=== PATIENT | female | born 1990 | race Hispanic/Latino ===

== ENCOUNTER 2016-06-08 15:52 | Emergency (ER) | payer OTHER ==
[~2016-06-08] VITALS: Ht 154.9 cm; Wt 50.0 kg
[~2016-06-08 15:52] MED LIST: ACYCLOVIR400 MG PO; AMOXICILLIN500 MG OR; AUGMENTIN875TAB PO; BACTRIM DS1 TAB PO; BENADRYL 50MG C50 MG OR; CIPRO XR500 M2 PO; CIPROFLOXACN500 MG PO; CORTISPORIN OTI10 ML AS; DEPO-MEDROL40 MG/ML IM; FLEXERIL10 MG PO; LORTAB 1010 MG PO; METRONIDAZOL500 MG PO; NAPROSYN500 MG PO; NEXPLANON68 MG SC; ONDANSETRON4 MG PO; PRENATAL1 TA1; PROTONIX40 M2 PO; ULTRAM50 M1 PO; ULTRAM50 MG OR; UNK BIRTH CONTROL; ZOFRAN4 MG/TAB PO
[2016-06-08 16:43] LABS: HEMATOCRIT 36.1 % (37.0-47.0); HEMOGLOBIN 12.3 g/dl (12.0-16.0); IMMATURE GRANULOCYTES 0.4 % (0.0-1.0); MEAN CELL VOLUME 87.8 fL CALC (80.0-100.0); MEAN CORPUSCULAR HGB 29.9 pG CALC (26.0-32.0); MEAN CORPUSCULAR HGB CONC 34.1 g/L CALC (32.0-36.0); NEUT# 8.4 thou/uL (2.00-7.15); RED BLOOD COUNT 4.11 mill/uL (4.20-5.60); RED CELL DISTRI WIDTH 13.3 % (11.5-15.5); URINE BILIRUBIN - DIPSTICK NEGATIVE (NEGATIVE); URINE BLOOD DIPSTICK LARGE (NEGATIVE); URINE CLARITY CLEAR; URINE COLOR YELLOW; URINE GLUCOSE - DIPSTICK NEGATIVE (NEGATIVE); URINE KETONE NEGATIVE (NEGATIVE); URINE LEUK ESTERASE NEGATIVE (NEGATIVE); URINE NITRITE - DIPSTICK NEGATIVE (Negative); URINE PROTEIN - DIPSTICK 30 mg/dL (NEG-TRACE); URINE SPECIFIC GRAVITY 1.025; URINE UROBILINOGEN - DIPSTICK 0.2 E.U./dL (0.2)
[2016-06-08 16:54] LABS: URINE SQUAMOUS EPITHELIAL CELL FEW EPI/hpf (0-FEW)
[2016-06-08 16:57] LABS: ALBUMIN 4.4 g/dL (3.2-5.0); ALKALINE PHOSPHATASE 62 u/l (38-126); ANION GAP 13 (6-22 (CALC)); BILIRUBIN, TOTAL 0.2 mg/dL (0.0-1.4); BUN 10 mg/dL (7-17); BUN/CREATININE RATIO 14 (12-20 (CALC)); CALCIUM 9.8 mg/dL (8.4-10.2); CARBON DIOXIDE 26 mmol/l (22-30); CHLORIDE 103 mmol/l (95-108); CREATININE 0.7 mg/dL (0.5-1.0); GFR > 60 ML/MIN (>=60 (CALC)); GFR FOR AFR.AMER. > 60 ML/MIN (>=60 (CALC)); GLUCOSE 78 mg/dL (65-105); POTASSIUM 3.5 mmol/l (3.5-5.1); SGOT/AST 16 u/l (14-36); SGPT/ALT 26 u/l (9-52); SODIUM 139 mmol/l (137-146); TOTAL PROTEIN 7.6 g/dL (6.3-8.2)
[2016-06-08 17:39] LABS: BETA-HCG, QUANT(RESULT NUMBER) 26353 mIU/mL
[2016-06-08 19:40] VITALS: BP 98/56
== END 2016-06-08 19:40 | disposition home or self-care (01) | DRG 778 ==
LOC: ED 15:52
PROVIDERS: Emergency Medicine
DX: O20.0 Threatened abortion (principal); Z3A.01 Less than 8 weeks gestation of pregnancy

== ENCOUNTER 2016-06-21 17:19 | Emergency (ER) | payer OTHER ==
[~2016-06-21] VITALS: Ht 154.9 cm; Wt 50.0 kg
[2016-06-21] MEDS ORDERED: ZOFRAN ODT4 MG PO ×2 (17:50→20:24)
[2016-06-21 17:56] LABS: HEMATOCRIT 37.5 % (37.0-47.0); HEMOGLOBIN 12.8 g/dl (12.0-16.0); IMMATURE GRANULOCYTES 0.4 % (0.0-1.0); MEAN CELL VOLUME 90.4 fL CALC (80.0-100.0); MEAN CORPUSCULAR HGB 30.8 pG CALC (26.0-32.0); MEAN CORPUSCULAR HGB CONC 34.1 g/L CALC (32.0-36.0); NEUT# 11.77 thou/uL (2.00-7.15); RED BLOOD COUNT 4.15 mill/uL (4.20-5.60); RED CELL DISTRI WIDTH 12.7 % (11.5-15.5)
[2016-06-21 18:09] LABS: ALBUMIN 4.3 g/dL (3.2-5.0); ALKALINE PHOSPHATASE 55 u/l (38-126); AMYLASE 115 u/l (30-110); ANION GAP 20 (6-22 (CALC)); BILIRUBIN, TOTAL 0.2 mg/dL (0.0-1.4); BUN 6 mg/dL (7-17); BUN/CREATININE RATIO 10 (12-20 (CALC)); CALCIUM 9.7 mg/dL (8.4-10.2); CARBON DIOXIDE 25 mmol/l (22-30); CHLORIDE 94 mmol/l (95-108); CREATININE 0.6 mg/dL (0.5-1.0); GFR > 60 ML/MIN (>=60 (CALC)); GFR FOR AFR.AMER. > 60 ML/MIN (>=60 (CALC)); GLUCOSE 83 mg/dL (65-105); LIPASE 54 u/l (23-300); POTASSIUM 3.6 mmol/l (3.5-5.1); SGOT/AST 18 u/l (14-36); SGPT/ALT 22 u/l (9-52); SODIUM 136 mmol/l (137-146); TOTAL PROTEIN 7.8 g/dL (6.3-8.2)
[2016-06-21 18:23] LABS: URINE BILIRUBIN - DIPSTICK NEGATIVE (NEGATIVE); URINE BLOOD DIPSTICK NEGATIVE (NEGATIVE); URINE CLARITY CLEAR; URINE COLOR YELLOW; URINE GLUCOSE - DIPSTICK NEGATIVE (NEGATIVE); URINE KETONE NEGATIVE (NEGATIVE); URINE LEUK ESTERASE NEGATIVE (NEGATIVE); URINE NITRITE - DIPSTICK NEGATIVE (Negative); URINE PROTEIN - DIPSTICK NEGATIVE (NEG-TRACE); URINE SPECIFIC GRAVITY >=1.030; URINE UROBILINOGEN - DIPSTICK 0.2 E.U./dL (0.2)
[2016-06-21] MEDS ORDERED: AMOXICILLIN500 MG PO (20:24)
[2016-06-21 20:42] VITALS: BP 95/66
== END 2016-06-21 20:35 | disposition home or self-care (01) | DRG 781 ==
LOC: ED 17:19
PROVIDERS: Emergency Medicine
DX: O99.611 Diseases of the digestive system complicating pregnancy, first trimester (principal); K52.9 Noninfective gastroenteritis and colitis, unspecified; Z3A.08 8 weeks gestation of pregnancy

== ENCOUNTER 2016-07-27 11:18 | Emergency (ER) | payer OTHER ==
[~2016-07-27] VITALS: Ht 154.9 cm; Wt 50.0 kg
[~2016-07-27 11:18] MED LIST changes: +AMOXICILLIN500 MG PO; +ZOFRAN ODT4 MG PO
[2016-07-27 12:00] LABS: HEMATOCRIT 35.3 % (37.0-47.0); HEMOGLOBIN 11.8 g/dl (12.0-16.0); IMMATURE GRANULOCYTES 0.4 % (0.0-1.0); MEAN CELL VOLUME 89.6 fL CALC (80.0-100.0); MEAN CORPUSCULAR HGB 29.9 pG CALC (26.0-32.0); MEAN CORPUSCULAR HGB CONC 33.4 g/L CALC (32.0-36.0); NEUT# 12.78 thou/uL (2.00-7.15); RED BLOOD COUNT 3.94 mill/uL (4.20-5.60); RED CELL DISTRI WIDTH 12.2 % (11.5-15.5)
[2016-07-27 12:19] LABS: ALKALINE PHOSPHATASE 68 u/l (38-126); AMYLASE 134 u/l (30-110); ANION GAP 16 (6-22 (CALC)); BILIRUBIN, TOTAL 0.5 mg/dL (0.0-1.4); BUN 9 mg/dL (7-17); BUN/CREATININE RATIO 16 (12-20 (CALC)); CALCIUM 9.4 mg/dL (8.4-10.2); CARBON DIOXIDE 22 mmol/l (22-30); CHLORIDE 102 mmol/l (95-108); CREATININE 0.6 mg/dL (0.5-1.0); GFR > 60 ML/MIN (>=60 (CALC)); GFR FOR AFR.AMER. > 60 ML/MIN (>=60 (CALC)); GLUCOSE 73 mg/dL (65-105); LIPASE 47 u/l (23-300); POTASSIUM 3.6 mmol/l (3.5-5.1); SGOT/AST 53 u/l (14-36); SGPT/ALT 14 u/l (9-52); SODIUM 136 mmol/l (137-146); TOTAL PROTEIN 7.8 g/dL (6.3-8.2)
[2016-07-27 12:22] LABS: URINE BILIRUBIN - DIPSTICK NEGATIVE (NEGATIVE); URINE BLOOD DIPSTICK NEGATIVE (NEGATIVE); URINE CLARITY CLEAR; URINE COLOR YELLOW; URINE GLUCOSE - DIPSTICK NEGATIVE (NEGATIVE); URINE KETONE NEGATIVE (NEGATIVE); URINE LEUK ESTERASE NEGATIVE (NEGATIVE); URINE NITRITE - DIPSTICK NEGATIVE (Negative); URINE PH 7.5 (4.5-8.0); URINE PROTEIN - DIPSTICK NEGATIVE (NEG-TRACE); URINE UROBILINOGEN - DIPSTICK 0.2 E.U./dL (0.2)
[2016-07-27 12:31] LABS: MYOGLOBIN 15 ng/mL (0 - 62)
[2016-07-27] MEDS ORDERED: PHENERGAN25 MG/TAB PO (14:48)
[2016-07-27] MEDS ORDERED: PHENERGAN25 M1 PR (14:48)
[2016-07-27 15:24] VITALS: BP 116/55
== END 2016-07-27 15:24 | disposition home or self-care (01) | DRG 781 ==
LOC: ED 11:18
PROVIDERS: Emergency Medicine
DX: O21.0 Mild hyperemesis gravidarum (principal); O24.911 Unspecified diabetes mellitus in pregnancy, first trimester; R10.32 Left lower quadrant pain; R94.31 Abnormal electrocardiogram [ECG] [EKG]; R04.0 Epistaxis; Z3A.12 12 weeks gestation of pregnancy

== ENCOUNTER 2016-09-13 10:36 | Observation (INO) | payer OTHER ==
[~2016-09-13] VITALS: Ht 160 cm; Wt 51.0 kg
[~2016-09-13 10:36] MED LIST changes: +PHENERGAN25 M1 PR; +PHENERGAN25 MG/TAB PO
[2016-09-13 11:29] LABS: HEMATOCRIT 32.6 % (37.0-47.0); HEMOGLOBIN 11.1 g/dl (12.0-16.0); IMMATURE GRANULOCYTES 0.6 % (0.0-1.0); MEAN CELL VOLUME 87.2 fL CALC (80.0-100.0); MEAN CORPUSCULAR HGB 29.7 pG CALC (26.0-32.0); NEUT# 11.46 thou/uL (2.00-7.15); RED BLOOD COUNT 3.74 mill/uL (4.20-5.60); RED CELL DISTRI WIDTH 13.1 % (11.5-15.5)
[2016-09-13 11:56] LABS: ALBUMIN 4.1 g/dL (3.2-5.0); ALKALINE PHOSPHATASE 67 u/l (38-126); ANION GAP 13 (6-22 (CALC)); BILIRUBIN, TOTAL 0.5 mg/dL (0.0-1.4); BUN 8 mg/dL (7-17); BUN/CREATININE RATIO 13 (12-20 (CALC)); CALCIUM 9.8 mg/dL (8.4-10.2); CARBON DIOXIDE 21 mmol/l (22-30); CHLORIDE 104 mmol/l (95-108); CREATININE 0.6 mg/dL (0.5-1.0); GFR > 60 ML/MIN (>=60 (CALC)); GFR FOR AFR.AMER. > 60 ML/MIN (>=60 (CALC)); GLUCOSE 68 mg/dL (65-105); LIPASE 57 u/l (23-300); POTASSIUM 3.6 mmol/l (3.5-5.1); SGOT/AST 21 u/l (14-36); SGPT/ALT 25 u/l (9-52); SODIUM 134 mmol/l (137-146); TOTAL PROTEIN 7.5 g/dL (6.3-8.2)
[2016-09-13 12:07] LABS: MYOGLOBIN 20 ng/mL (0 - 62)
[2016-09-13 13:13] LABS: URINE BILIRUBIN - DIPSTICK NEGATIVE (NEGATIVE); URINE BLOOD DIPSTICK NEGATIVE (NEGATIVE); URINE CLARITY CLEAR; URINE COLOR YELLOW; URINE GLUCOSE - DIPSTICK NEGATIVE (NEGATIVE); URINE KETONE 40 mg/dL (NEGATIVE); URINE LEUK ESTERASE NEGATIVE (NEGATIVE); URINE NITRITE - DIPSTICK NEGATIVE (Negative); URINE PH 8.5 (4.5-8.0); URINE PROTEIN - DIPSTICK NEGATIVE (NEG-TRACE); URINE UROBILINOGEN - DIPSTICK 0.2 E.U./dL (0.2)
[2016-09-13 13:42] LABS: COCAINE NEGATIVE (NEGATIVE); METHADONE NEGATIVE (NEGATIVE); TETRAHYDROCANNABIONOL POSITIVE (NEGATIVE)
[2016-09-13 13:43] LABS: BARBITURATES NEGATIVE (NEGATIVE); OXCYCODONE NEGATIVE (NEGATIVE); TRICYLIC ANTIDEPRESSANTS NEGATIVE (NEGATIVE)
[2016-09-13 15:20] VITALS: BP 97/53
[2016-09-13] MEDS ORDERED: PRE-NATAL PO (17:50)
[2016-09-13 19:15] VITALS: BP 94/53
[2016-09-13 23:36] VITALS: BP 92/55
[2016-09-14 04:00] VITALS: BP 79/39
[2016-09-14 07:52] VITALS: BP 98/51
[2016-09-14 08:25] LABS: HEMATOCRIT 32.8 % (37.0-47.0); IMMATURE GRANULOCYTES 0.5 % (0.0-1.0); MEAN CELL VOLUME 90.1 fL CALC (80.0-100.0); MEAN CORPUSCULAR HGB 30.2 pG CALC (26.0-32.0); MEAN CORPUSCULAR HGB CONC 33.5 g/L CALC (32.0-36.0); NEUT# 9.13 thou/uL (2.00-7.15); RED BLOOD COUNT 3.64 mill/uL (4.20-5.60); RED CELL DISTRI WIDTH 13.1 % (11.5-15.5)
[2016-09-14 11:44] VITALS: BP 98/54
[2016-09-14 12:56] LABS: ALBUMIN 3.2 g/dL (3.2-5.0); ALKALINE PHOSPHATASE 59 u/l (38-126); AMYLASE 88 u/l (30-110); ANION GAP 11 (6-22 (CALC)); BILIRUBIN, TOTAL 0.5 mg/dL (0.0-1.4); BUN 7 mg/dL (7-17); BUN/CREATININE RATIO 11 (12-20 (CALC)); CALCIUM 9.5 mg/dL (8.4-10.2); CARBON DIOXIDE 22 mmol/l (22-30); CHLORIDE 106 mmol/l (95-108); CREATININE 0.6 mg/dL (0.5-1.0); GFR > 60 ML/MIN (>=60 (CALC)); GFR FOR AFR.AMER. > 60 ML/MIN (>=60 (CALC)); GLUCOSE 71 mg/dL (65-105); LIPASE 73 u/l (23-300); POTASSIUM 4.2 mmol/l (3.5-5.1); SGOT/AST 21 u/l (14-36); SGPT/ALT 23 u/l (9-52); SODIUM 135 mmol/l (137-146); TOTAL PROTEIN 5.9 g/dL (6.3-8.2)
[2016-09-14 16:18] VITALS: BP 92/50
[2016-09-14 20:00] VITALS: BP 97/48
[2016-09-14 22:24] LABS: C. DIFFICILE TOXIN A&B NEGATIVE (NEGATIVE)
[2016-09-14 23:46] VITALS: BP 83/51
[2016-09-15 03:47] VITALS: BP 88/44
[2016-09-15 08:26] VITALS: BP 98/53
== END 2016-09-15 08:40 | disposition home or self-care (01) | DRG 781 ==
LOC: ED 10:36 → ED-I 13:55 → ED 14:26 → OB 14:27
PROVIDERS: Emergency Medicine; ADMIT Obstetrics & Gynecology; ATTEND Obstetrics & Gynecology
DX: O26.892 Other specified pregnancy related conditions, second trimester (principal); O09.212 Supervision of pregnancy with history of pre-term labor, second trimester; F17.210 Nicotine dependence, cigarettes, uncomplicated; R10.11 Right upper quadrant pain; R11.2 Nausea with vomiting, unspecified; O99.332 Smoking (tobacco) complicating pregnancy, second trimester; O99.322 Drug use complicating pregnancy, second trimester; F12.90 Cannabis use, unspecified, uncomplicated; F11.90 Opioid use, unspecified, uncomplicated; Z3A.20 20 weeks gestation of pregnancy
CPT/HCPCS: G0378; S0164

== ENCOUNTER 2016-12-03 11:44 | Observation (INO) | payer OTHER ==
[~2016-12-03] VITALS: Ht 160 cm; Wt 57.2 kg
[2016-12-03 11:40] VITALS: BP 123/60
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
[~2016-12-03 11:44] MED LIST changes: +MAKENA250 MG/ML IM; +PRE-NATAL PO
--- NOTE | 2016-12-03 11:53 | NUR ---
CALLED EVER [facility]ibo TECH. SHE WILL BE UP FOR U/S SOON POSSIBLE.
[2016-12-03] MEDS ORDERED: PROCARDIA10 MG PO ×2 (12:04→14:28)
[2016-12-03] MEDS ORDERED: TYLENOL PM PO (12:07)
[2016-12-03 12:13] LABS: URINE BILIRUBIN - DIPSTICK NEGATIVE (NEGATIVE); URINE BLOOD DIPSTICK NEGATIVE (NEGATIVE); URINE COLOR YELLOW; URINE GLUCOSE - DIPSTICK NEGATIVE (NEGATIVE); URINE KETONE NEGATIVE (NEGATIVE); URINE LEUK ESTERASE MODERATE (Negative); URINE NITRITE - DIPSTICK NEGATIVE (Negative); URINE PROTEIN - DIPSTICK NEGATIVE (NEG-TRACE); URINE SPECIFIC GRAVITY 1.015; URINE UROBILINOGEN - DIPSTICK 0.2 E.U./dL (0.2)
--- NOTE | 2016-12-03 12:15 | NUR ---
18G IV STARTED ON LEFT HAND, LABS DRAWN, LR BOLUS STARTED.
[2016-12-03 12:19] LABS: URINE CLARITY SLIGHT CLOUDY
[2016-12-03 12:20] LABS: BARBITURATES NEGATIVE (NEGATIVE); COCAINE NEGATIVE (NEGATIVE); METHADONE NEGATIVE (NEGATIVE); OXCYCODONE NEGATIVE (NEGATIVE); TETRAHYDROCANNABIONOL NEGATIVE (NEGATIVE); TRICYLIC ANTIDEPRESSANTS NEGATIVE (NEGATIVE); URINE BACTERIA FEW hpf; URINE EPITHELIAL CELLS MODERATE EPI/hpf (0-FEW)
--- NOTE | 2016-12-03 12:24 | NUR ---
PROCARDIA AND VISTARIL GIVEN ORDERED.
[2016-12-03 12:28] VITALS: BP 107/55
[2016-12-03 13:00] VITALS: BP 106/55
--- NOTE | 2016-12-03 13:12 | NUR ---
PT RESTING, STATES PAIN IS GETTING LOWER, RATES 4/10. APPEARS CALMER.
--- NOTE | 2016-12-03 13:27 | NUR ---
PT RESTING, SMILING, DENIES ANY PAIN AT THIS TIME. DR. SHAIKH UPDATED THAT PT'S PAIN IS BETTER AND CONTRACTIONS NO LONGER PRESENT. WAITING FOR ULTRASOUND.
--- NOTE | 2016-12-03 13:35 | NUR ---
PT TAKEN TO ULTRASOUND VIA WHEELCHAIR AT THIS TIME.
--- NOTE | 2016-12-03 14:06 | NUR ---
PT BACK FROM ULTRASOUND, EFM RESTARTED. PT SMILING, DENIES ANY PAIN. DR. SHAIKH AT BEDSIDE, DISCUSSING PLAN OF CARE WITH PT. PT VERBALIZED UNDERSTANDING.
[2016-12-03] MEDS ORDERED: VISTARIL25 MG PO (14:27)
--- NOTE | 2016-12-03 14:50 | NUR ---
CAROL IM SHOT GIVEN PER ORDER. DISCHARGE INSTRUCTIONS GIVEN TO PT, INCLUDING RX FOR PROCARDIA AND VISTARIL. INSTRUCTED PT ON HOW TO TAKE THEM AND WHEN TO RETURN TO THE HOSPITAL. PT VERBALIZED UNDERSTANDING.
--- NOTE | 2016-12-03 15:05 | NUR ---
PT DISCHARGED HOME, IN STABLE CONDITION, WITH FAMILY MEMBER, AMBULATORY.
== END 2016-12-03 15:05 | disposition home or self-care (01) | DRG 780 ==
LOC: OB 11:44 → OBOP 11:44 → OB 12:00
DX: O47.03 False labor before 37 completed weeks of gestation, third trimester (principal); Z3A.31 31 weeks gestation of pregnancy
CPT/HCPCS: G0378

== ENCOUNTER 2016-12-16 12:53 | Observation (INO) | payer OTHER ==
[~2016-12-16] VITALS: Ht 160 cm; Wt 55.8 kg
[~2016-12-16 12:53] MED LIST changes: +PROCARDIA10 MG PO; +TYLENOL PM PO; +VISTARIL25 MG PO
[2016-12-16 14:56] LABS: URINE BILIRUBIN - DIPSTICK NEGATIVE (NEGATIVE); URINE BLOOD DIPSTICK NEGATIVE (NEGATIVE); URINE CLARITY CLEAR; URINE COLOR YELLOW; URINE GLUCOSE - DIPSTICK NEGATIVE (NEGATIVE); URINE KETONE NEGATIVE (NEGATIVE); URINE LEUK ESTERASE NEGATIVE (NEGATIVE); URINE NITRITE - DIPSTICK NEGATIVE (Negative); URINE PROTEIN - DIPSTICK NEGATIVE (NEG-TRACE); URINE UROBILINOGEN - DIPSTICK 0.2 E.U./dL (0.2)
[2016-12-16 15:00] VITALS: BP 105/55
[2016-12-16 15:01] LABS: BARBITURATES NEGATIVE (NEGATIVE); COCAINE NEGATIVE (NEGATIVE); METHADONE NEGATIVE (NEGATIVE); OXCYCODONE NEGATIVE (NEGATIVE); TETRAHYDROCANNABIONOL NEGATIVE (NEGATIVE); TRICYLIC ANTIDEPRESSANTS NEGATIVE (NEGATIVE)
[2016-12-16 15:36] VITALS: BP 105/55
[2016-12-16 17:25] LABS: HEMATOCRIT 32.5 % (37.0-47.0); HEMOGLOBIN 10.8 g/dl (12.0-16.0); IMMATURE GRANULOCYTES 1.5 % (0.0-1.0); MEAN CELL VOLUME 88.6 fL CALC (80.0-100.0); MEAN CORPUSCULAR HGB 29.4 pG CALC (26.0-32.0); MEAN CORPUSCULAR HGB CONC 33.2 g/L CALC (32.0-36.0); NEUT# 13.46 thou/uL (2.00-7.15); RED BLOOD COUNT 3.67 mill/uL (4.20-5.60); RED CELL DISTRI WIDTH 13.6 % (11.5-15.5)
[2016-12-16 17:47] LABS: ALKALINE PHOSPHATASE 144 u/l (38-126); ANION GAP 17 (6-22 (CALC)); BILIRUBIN, TOTAL 0.5 mg/dL (0.0-1.4); BUN 9 mg/dL (7-17); BUN/CREATININE RATIO 16 (12-20 (CALC)); CALCIUM 9.7 mg/dL (8.4-10.2); CARBON DIOXIDE 23 mmol/l (22-30); CHLORIDE 103 mmol/l (95-108); CREATININE 0.6 mg/dL (0.5-1.0); GFR > 60 ML/MIN (>=60 (CALC)); GFR FOR AFR.AMER. > 60 ML/MIN (>=60 (CALC)); GLUCOSE 79 mg/dL (65-105); POTASSIUM 3.8 mmol/l (3.5-5.1); SGOT/AST 20 u/l (14-36); SGPT/ALT 28 u/l (9-52); SODIUM 138 mmol/l (137-146); TOTAL PROTEIN 7.2 g/dL (6.3-8.2)
[2016-12-16 19:00] VITALS: BP 107/59
[2016-12-16 23:30] VITALS: BP 107/55
[2016-12-17 01:38] VITALS: BP 107/60
[2016-12-17 05:00] VITALS: BP 119/56
[2016-12-17 07:22] VITALS: BP 110/56
[2016-12-17 08:00] VITALS: BP 108/58
[2016-12-17 09:30] VITALS: BP 94/53
[2016-12-17] MEDS ORDERED: PROCARDIA10 MG PO (13:26)
== END 2016-12-17 13:48 | disposition home or self-care (01) | DRG 778 ==
LOC: OBOP 12:53 → OB 14:15 → OBOP 15:10 → OB 12-17 13:48
PROVIDERS: ADMIT Obstetrics & Gynecology; ATTEND Obstetrics & Gynecology
DX: O60.03 Preterm labor without delivery, third trimester (principal); O26.873 Cervical shortening, third trimester; O34.219 Maternal care for unspecified type scar from previous cesarean delivery; O09.213 Supervision of pregnancy with history of pre-term labor, third trimester; N85.8 Other specified noninflammatory disorders of uterus; O99.343 Other mental disorders complicating pregnancy, third trimester; F41.9 Anxiety disorder, unspecified; Z3A.33 33 weeks gestation of pregnancy
CPT/HCPCS: G0378

== ENCOUNTER 2017-01-18 14:18 | Inpatient (IN) | payer OTHER ==
[2017-01-18] VITALS (11 sets, daily range): BP systolic 106–132; BP diastolic 56–82
[~2017-01-18] VITALS: Ht 160 cm; Wt 58.1 kg
[~2017-01-18 14:18] MED LIST changes: +NORCO1 TA1 PO
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
--- NOTE | 2017-01-18 14:49 | NUR ---
ROM PLUS COLLECTED FIRST, THEN FERN COLLECTED VIA SPECULUM EXAM, THIN CLEAR FLUID NOTED ON VAGINAL VAULT. SENT TO LAB. PT APPEARS ANXIOUS, STATES "I AM NOT READY TO HAVE THIS BABY TODAY, I WAS READY FOR TUESDAY", REFERRING TO HER SCHEDULED TUESDAY. PT REASSURED. PROCEDURES EXPLAINED. ALL CONSENTS OBTAINED. PT VERBALIZED UNDERSTANDING AND IS IN AGREEMENT.
[2017-01-18 15:01] LABS: URINE BILIRUBIN - DIPSTICK NEGATIVE (NEGATIVE); URINE BLOOD DIPSTICK NEGATIVE (NEGATIVE); URINE COLOR YELLOW; URINE GLUCOSE - DIPSTICK NEGATIVE (NEGATIVE); URINE KETONE NEGATIVE (NEGATIVE); URINE LEUK ESTERASE TRACE (NEGATIVE); URINE NITRITE - DIPSTICK NEGATIVE (Negative); URINE PH 7.5 (4.5-8.0); URINE PROTEIN - DIPSTICK 30 mg/dL (NEG-TRACE); URINE SPECIFIC GRAVITY 1.015; URINE UROBILINOGEN - DIPSTICK 0.2 E.U./dL (0.2)
[2017-01-18 15:07] LABS: COCAINE NEGATIVE (NEGATIVE); METHADONE NEGATIVE (NEGATIVE); TETRAHYDROCANNABIONOL NEGATIVE (NEGATIVE)
[2017-01-18 15:08] LABS: BARBITURATES NEGATIVE (NEGATIVE); OXCYCODONE NEGATIVE (NEGATIVE); TRICYLIC ANTIDEPRESSANTS NEGATIVE (NEGATIVE)
[2017-01-18 15:10] LABS: URINE CLARITY SL CLOUDY
[2017-01-18 15:19] LABS: HEMATOCRIT 30.1 % (37.0-47.0); MEAN CELL VOLUME 86.5 fL CALC (80.0-100.0); MEAN CORPUSCULAR HGB 28.7 pG CALC (26.0-32.0); MEAN CORPUSCULAR HGB CONC 33.2 g/L CALC (32.0-36.0); NEUT# 11.63 thou/uL (2.00-7.15); RED BLOOD COUNT 3.48 mill/uL (4.20-5.60)
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
[2017-01-18 15:29] LABS: URINE BACTERIA MODERATE hpf; URINE SQUAMOUS EPITHELIAL CELL FEW EPI/hpf (0-FEW); URINE TRICHOMONAS FEW hpf; URINE WBC 20-50 WBC/hpf (0-5)
[2017-01-18 15:30] LABS: ALBUMIN 3.6 g/dL (3.2-5.0); ALKALINE PHOSPHATASE 194 u/l (38-126); ANION GAP 13 (6-22 (CALC)); BILIRUBIN, TOTAL 0.4 mg/dL (0.0-1.4); BUN 9 mg/dL (7-17); BUN/CREATININE RATIO 13 (12-20 (CALC)); CALCIUM 9.3 mg/dL (8.4-10.2); CARBON DIOXIDE 21 mmol/l (22-30); CHLORIDE 107 mmol/l (95-108); CREATININE 0.7 mg/dL (0.5-1.0); GFR > 60 ML/MIN (>=60 (CALC)); GFR FOR AFR.AMER. > 60 ML/MIN (>=60 (CALC)); GLUCOSE 78 mg/dL (65-105); POTASSIUM 4.1 mmol/l (3.5-5.1); SGOT/AST 20 u/l (14-36); SGPT/ALT 24 u/l (9-52); SODIUM 137 mmol/l (137-146); TOTAL PROTEIN 6.8 g/dL (6.3-8.2)
--- NOTE | 2017-01-18 15:55 | NUR ---
DR. SHEEHAN AT BEDSIDE, SVE DONE, 2-3%/-2.
[2017-01-18] MEDS ORDERED: PRE-NATAL PO (16:24)
--- NOTE | 2017-01-18 16:33 | NUR ---
Kelsey BE PRODUCT DEVELOPMENT SPECIALIST AT BEDSIDE AT THIS TIME.
--- NOTE | 2017-01-18 16:45 | NUR ---
ACCUCHECK DONE PT STATES SHE WAS DIABETIC BEFORE HER AND WAS ON METFORMIN, HOWEVER, ALL HER LABS HAVE BEEN WNL DURING . ACCUCHECK IS 79 AT THIS TIME.
--- NOTE | 2017-01-18 17:10 | NUR ---
PT TAKEN TO THE OR WITH OR STAFF AT THIS TIME.
--- NOTE | 2017-01-18 19:40 | NUR ---
RECEIVED PT FROM PACU. TRANSFERRED TO BED WITH 4 ASSIST. IV PATENT AND PLACED ON MED PUMP AT 125CC/HOUR. CASAS PATENT DRAINING LIGHT YELLOW URINE. SCD ON LOWER LEGS AND MACHINE ON. ABDOMINAL DRESSING DRY AND CLEAN. STATES PAIN IS 9/10. 15 MINUTE VS, FUNDAL CHECKS AND PULSE OXIMETER READINGS STARTED. PULSE OX 100%.
--- NOTE | 2017-01-18 20:19 | NUR ---
PT COMPLAINS OF PAIN. MEDICATED WITH TORADOL. SEE E-MAR FOR DETAILS. ABDOMINAL DRESSING REMAINS DRY AND INTACT. COMPLAINS OF ITCHING. GIVEN BENADRYL FOR ITCHING. CYTOTEC GIVEN ORDERED. SMALL RUBRA ON PERIPAD. GOOD EYE CONTACT WITH .
--- NOTE | 2017-01-18 23:30 | NUR ---
PT RESTING COMFORTABLY HOLDING . NO COMPLAINTS. BED IN LOW POSITION. CALL LIGHT WITHIN REACH. IV CONTINUES ON MED PUMP AT 125CC/HR. CASAS DRAINS LIGHT YELLOW URINE.
--- NOTE | 2017-01-19 02:58 | NUR ---
PT . NO COMPLAINTS. STATES SHE SLEPT SOME. CASAS EMPTIED OF 1375 CC LIGHT YELLOW URINE.
[2017-01-19 04:30] VITALS: BP 102/57
--- NOTE | 2017-01-19 06:00 | NUR ---
PERICARE DONE IN BED WITHOUT DIFFICULTY. MOD RUBRA NOTED ON OLD PAD. PT STATES SHE IS STILL NUMB IN LOWER LEGS. ABDOMINAL DRESSING REMAINS DRY AND INTACT. CASAS DRAINING LIGHT YELLOW URINE.
[2017-01-19 06:13] LABS: HEMATOCRIT 25.9 % (37.0-47.0); HEMOGLOBIN 8.6 g/dl (12.0-16.0); IMMATURE GRANULOCYTES 0.7 % (0.0-1.0); MEAN CELL VOLUME 85.5 fL CALC (80.0-100.0); MEAN CORPUSCULAR HGB 28.4 pG CALC (26.0-32.0); MEAN CORPUSCULAR HGB CONC 33.2 g/L CALC (32.0-36.0); NEUT# 12.89 thou/uL (2.00-7.15); RED BLOOD COUNT 3.03 mill/uL (4.20-5.60); RED CELL DISTRI WIDTH 13.8 % (11.5-15.5)
--- NOTE | 2017-01-19 07:00 | NUR ---
RECEIVED BEDSIDE REPORT FROM WILIAN FLORES RN. PT IS AWAKE AND QUIET IN BED. CONDITION IS STABLE. HAVING PAIN. WILL GET PAIN MEDS.
--- NOTE | 2017-01-19 07:20 | NUR ---
PT UP IN BED, REMOVED CASAS, GAVE PT LORTAB FOR PAIN. INSTRUCTED PT THAT SHE NEEDS TO BE UP AMBULATING THIS MORNING. ASSESSMENT CHARTED, DRESSING IS C.D.I. IV SITE WNL AND RUNNING WELL. CONDITION IS STABLE. PT STATES NO FURTHER NEEDS AT THIS TIME.
[2017-01-19 07:23] VITALS: BP 104/60
--- NOTE | 2017-01-19 10:20 | NUR ---
PT OOB TO BRP, VOIDED AND BRUSHED TEETH. THEN PT AMBULATING IN AWAD.
[2017-01-19 11:20] VITALS: BP 105/57
--- NOTE | 2017-01-19 11:25 | NUR ---
PT REPORTS IV IS PAINFUL, FLUSED AND NOTED TO BE INFILTRATED. IV FLUIDS STOPPED. IV D/C'ED. SITE WNL. BANDAID OVER GAUZE APPLIED. CALLED DR SHEEHAN. OBTAINED ORDER THAT IV DOES NOT NEED TO BE RESTARTED.
--- NOTE | 2017-01-19 14:18 | NUR ---
MOTRIN GIVEN FOR PAIN, ALSO PT USING ICE PACKS PRN. PT TO BRP, VOIDED THEN WALKING IN HALLS. GAVE LANOLIN CREAM FOR SORE NIPPLES WELL. CONDITION IS STABLE. PT STATES NO NEEDS AT THIS TIME.
--- NOTE | 2017-01-19 17:00 | NUR ---
PT UP TO BRP, VOIDED. THEN GAVE LORTAB FOR PT. THEN PT TO SHOWER. DRESSING REMOVED AND PT WASHED INCISION IN SHOWER. STERI STRIPS OPEN TO AIR. AFTER SHOWER REVIEWED IMPORTANCE OF DRYING WELL. SITE WNL. PT THEN AMBULATED TO ROOM. RETURNED TO MOTHER. FOB AND TODDLER SON TO ROOM WELL. PT IN BED AND . FATHER AT BEDSIDE AND SUPPORTIVE. NO NEEDS AT THIS TIME.
--- NOTE | 2017-01-19 18:40 | NUR ---
PT IS UP IN BED EATING DINNER. CONDITION IS STABLE. PT STATES NO NEEDS AT THIS TIME. REPORT IS READY FOR NEXT SHIFT. FAMILY IS IN ROOM VISITING.
--- NOTE | 2017-01-19 18:45 | NUR ---
BEDSIDE REPORT RECEIVED FROM BARAK SAAB RN ON PT STATUS. PT SITS IN BED AND IS EATING DINNER. STATES PAIN IS 5/10. OFFERED WARM OR COLD COMPRESSES FOR INCISION. REFUSES. WILL OFFER MOTRIN WHEN TIME.
[2017-01-19 19:40] VITALS: BP 111/57
--- NOTE | 2017-01-19 20:13 | NUR ---
PT TALKING ON PHONE. BED IN LOW POSITION, CALL LIGHT WITHIN REACH.
--- NOTE | 2017-01-19 20:15 | NUR ---
PT COMPLAINS OF INCISIONAL PAIN AND RT SHOULDER PAIN. COMPLAINS OF GENERALIZED ITCHING ALL OVER BODY. REQUESTS BENADRYL, PAIN MEDICATION AND STOOL SOFTNER. 2020: MEDICATED WITH MOTRIN, PERICOLACE AND BENADRYL. SEE E-MAR FOR DETAIL. WARM BLANKET GIVEN FOR RT SHOULDER PAIN.
--- NOTE | 2017-01-19 22:15 | NUR ---
PT AMBULATING IN HALLWAY PUSHING INFANT IN CRIB. GAIT IS VERY SLOW BUT STEADY. DENIES DIZZINESS. COMPLETES 2 ROUNDS ON UNIT.
--- NOTE | 2017-01-19 22:30 | NUR ---
FEEDING . COMPLAINS OF INCISION BURNING AFTER AMBULATING IN HALLWAY. OFFERED ICE PACK. PT REFUSES. HAS BEEN MEDICATED WITH LORTAB AND IBUPROFEN. PT STATES SHE WILL LAY DOWN.
--- NOTE | 2017-01-20 02:00 | NUR ---
PT SLEEPING. NO SIGNS OF DISTRESS. BED IN LOW POSITION AND CALL LIGHT WITHIN REACH.
--- NOTE | 2017-01-20 05:10 | NUR ---
DR. KNIGHT HERE AND SEES PT TO REPORT ON STATUS OF .
--- NOTE | 2017-01-20 06:59 | NUR ---
BEDSIDE REPORT GIVEN TO GÓMEZ THOMAS RN ON PT STATUS. PT RESTING WITH BABY ON CHEST. HAS NO QUESTIONS OR CONCERNS. MEDICATED WITH LORTAB.
--- NOTE | 2017-01-20 07:00 | NUR ---
Report received from prior shift on patient.
--- NOTE | 2017-01-20 07:30 | NUR ---
Dr. Cruz on unit assessing patient. Discharge orders written.
--- NOTE | 2017-01-20 07:40 | NUR ---
Patient in bed resting comfortably with eyes closed. No distress noted at present moment. Will continue to monitor.
[2017-01-20 08:00] VITALS: BP 97/62
[2017-01-20] MEDS ORDERED: LORTAB 7.57.5 MG PO (08:34)
[2017-01-20] MEDS ORDERED: IBUPROFEN600 MG PO (08:37)
--- NOTE | 2017-01-20 08:53 | NUR ---
patient consents to the pneumonia vaccine.
--- NOTE | 2017-01-20 09:21 | NUR ---
Tdap im given to left arm.
--- NOTE | 2017-01-20 09:22 | NUR ---
Pneumovax vaccine given IM as ordered.
--- NOTE | 2017-01-20 09:52 | NUR ---
Motrin 600mg by mouth given for pain level of 8 on scale of 1 to 10.
--- NOTE | 2017-01-20 10:15 | NUR ---
Pain level of 0 on scale of 1 to10.
--- NOTE | 2017-01-20 10:34 | NUR ---
Infant resting in mother's arms in no distress at present moment.
--- NOTE | 2017-01-20 11:00 | NUR ---
[employer] outreach representative in room with patient. No complaint noted.
--- NOTE | 2017-01-20 11:19 | NUR ---
Patient resting comfortably in no distress. Pain level of 0 on scale of 1 to 10.
--- NOTE | 2017-01-20 12:20 | NUR ---
Patient at present time.
--- NOTE | 2017-01-20 13:30 | NUR ---
Lortab one tablet by mouth given for pain level of 7 on scale of 1 to 10.
--- NOTE | 2017-01-20 13:59 | NUR ---
Pain level of 0 on scale of 1 to 10.
--- NOTE | 2017-01-20 14:07 | NUR ---
patient leaves unit in wheelchair in good condition with all belongings accompanied by friends/family and significant other.
--- NOTE | 2017-01-20 14:07 | NUR ---
Infant in secured car seat carried by father of infant.
== END 2017-01-20 14:07 | disposition home or self-care (01) | DRG 766 ==
LOC: OBOP 14:18 → EDSTATUS 14:20 → OBOP 14:50 → OB 14:50 → OBOP 15:14 → OB 15:15
PROVIDERS: ADMIT Obstetrics & Gynecology; ATTEND Obstetrics & Gynecology
PROC: 10D00Z1 Extraction of Products of Conception, Low, Open Approach (ICD-10-PCS; principal; 2017-01-18)
DX: O34.211 Maternal care for low transverse scar from previous cesarean delivery (principal); N85.8 Other specified noninflammatory disorders of uterus; O75.82 Onset (spontaneous) of labor after 37 completed weeks of gestation but before 39 completed weeks gestation, with delivery by (planned) cesarean section; Z3A.38 38 weeks gestation of pregnancy; Z37.0 Single live birth

== ENCOUNTER 2017-12-11 17:51 | Emergency (ER) | payer MEDICAID ==
[~2017-12-11] VITALS: Ht 160 cm; Wt 54.5 kg
[~2017-12-11 17:51] MED LIST changes: +IBUPROFEN600 MG PO; +LORTAB 7.57.5 MG PO
[2017-12-11 18:16] LABS: IMMATURE GRANULOCYTES 0.2 % (0.0-5.0); MEAN CELL VOLUME 88.6 fL CALC (80.0-100.0); MEAN CORPUSCULAR HGB 28.6 pG CALC (26.0-32.0); MEAN CORPUSCULAR HGB CONC 32.3 g/L CALC (32.0-36.0); NEUT# 6.33 thou/uL (2.00-7.15); RED BLOOD COUNT 4.37 mill/uL (4.20-5.60); RED CELL DISTRI WIDTH 15.4 % (11.5-15.5)
[2017-12-11 18:27] LABS: HEMATOCRIT 38.7 % (37.0-47.0); HEMOGLOBIN 12.5 g/dl (12.0-16.0)
[2017-12-11 19:07] LABS: ALBUMIN 3.7 g/dL (3.2-5.0); ALKALINE PHOSPHATASE 78 u/l (38-126); ANION GAP 12 (6-22 (CALC)); BILIRUBIN, TOTAL 0.4 mg/dL (0.0-1.4); BUN 11 mg/dL (7-17); BUN/CREATININE RATIO 18 (12-20 (CALC)); CARBON DIOXIDE 27 mmol/l (22-30); CHLORIDE 104 mmol/l (95-108); CREATININE 0.6 mg/dL (0.5-1.0); GFR > 60 ML/MIN (>=60 (CALC)); GFR FOR AFR.AMER. > 60 ML/MIN (>=60 (CALC)); POTASSIUM 4.1 mmol/l (3.5-5.1); SGOT/AST 57 u/l (14-36); SODIUM 139 mmol/l (137-146); TOTAL PROTEIN 6.8 g/dL (6.3-8.2)
[2017-12-11 19:36] LABS: URINE BILIRUBIN - DIPSTICK NEGATIVE (NEGATIVE); URINE BLOOD DIPSTICK NEGATIVE (NEGATIVE); URINE CLARITY CLEAR; URINE COLOR YELLOW; URINE GLUCOSE - DIPSTICK NEGATIVE (NEGATIVE); URINE KETONE NEGATIVE (NEGATIVE); URINE LEUK ESTERASE NEGATIVE (NEGATIVE); URINE NITRITE - DIPSTICK NEGATIVE (Negative); URINE PROTEIN - DIPSTICK NEGATIVE (NEG-TRACE); URINE UROBILINOGEN - DIPSTICK 0.2 E.U./dL (0.2)
[2017-12-11 21:49] VITALS: BP 110/71
== END 2017-12-11 21:50 | disposition home or self-care (01) ==
LOC: ED 17:51
PROVIDERS: Emergency Medicine
DX: R07.89 Other chest pain (principal); S22.41XA Multiple fractures of ribs, right side, initial encounter for closed fracture; J90 Pleural effusion, not elsewhere classified; V89.2XXD Person injured in unspecified motor-vehicle accident, traffic, subsequent encounter; W01.0XXA Fall on same level from slipping, tripping and stumbling without subsequent striking against object, initial encounter; Y92.009 Unspecified place in unspecified non-institutional (private) residence as the place of occurrence of the external cause; R11.0 Nausea; R31.9 Hematuria, unspecified; R10.9 Unspecified abdominal pain

== ENCOUNTER 2017-12-27 16:10 | Emergency (ER) | payer MEDICAID ==
[~2017-12-27] VITALS: Ht 160 cm; Wt 50.0 kg
[2017-12-27 17:07] LABS: HEMATOCRIT 39.3 % (37.0-47.0); HEMOGLOBIN 12.8 g/dl (12.0-16.0); IMMATURE GRANULOCYTES 0.2 % (0.0-5.0); MEAN CELL VOLUME 88.1 fL CALC (80.0-100.0); MEAN CORPUSCULAR HGB 28.7 pG CALC (26.0-32.0); MEAN CORPUSCULAR HGB CONC 32.6 g/L CALC (32.0-36.0); NEUT# 5.73 thou/uL (2.00-7.15); RED BLOOD COUNT 4.46 mill/uL (4.20-5.60); RED CELL DISTRI WIDTH 14.1 % (11.5-15.5)
[2017-12-27 17:18] LABS: ALBUMIN 4.4 g/dL (3.2-5.0); ALKALINE PHOSPHATASE 85 u/l (38-126); ANION GAP 16 (6-22 (CALC)); BILIRUBIN, TOTAL 0.5 mg/dL (0.0-1.4); BUN 12 mg/dL (7-17); BUN/CREATININE RATIO 18 (12-20 (CALC)); CARBON DIOXIDE 24 mmol/l (22-30); CHLORIDE 105 mmol/l (95-108); CREATININE 0.7 mg/dL (0.5-1.0); GFR > 60 ML/MIN (>=60 (CALC)); GFR FOR AFR.AMER. > 60 ML/MIN (>=60 (CALC)); POTASSIUM 4.7 mmol/l (3.5-5.1); SGOT/AST 25 u/l (14-36); SODIUM 140 mmol/l (137-146)
[2017-12-27 17:28] LABS: URINE BILIRUBIN - DIPSTICK NEGATIVE (NEGATIVE); URINE BLOOD DIPSTICK NEGATIVE (NEGATIVE); URINE COLOR YELLOW; URINE GLUCOSE - DIPSTICK NEGATIVE (NEGATIVE); URINE KETONE NEGATIVE (NEGATIVE); URINE LEUK ESTERASE NEGATIVE (NEGATIVE); URINE NITRITE - DIPSTICK NEGATIVE (Negative); URINE PH 8.5 (4.5-8.0); URINE PROTEIN - DIPSTICK NEGATIVE (NEG-TRACE); URINE SPECIFIC GRAVITY 1.015; URINE UROBILINOGEN - DIPSTICK 0.2 E.U./dL (0.2)
[2017-12-27 17:29] LABS: URINE CLARITY SL CLOUDY
[2017-12-27 17:33] LABS: COCAINE NEGATIVE (NEGATIVE); METHADONE NEGATIVE (NEGATIVE); TETRAHYDROCANNABIONOL NEGATIVE (NEGATIVE)
[2017-12-27 17:34] LABS: BARBITURATES NEGATIVE (NEGATIVE); OXCYCODONE NEGATIVE (NEGATIVE); TRICYLIC ANTIDEPRESSANTS NEGATIVE (NEGATIVE)
[2017-12-27] MEDS ORDERED: TORADOL PO (18:38)
[2017-12-27 19:10] VITALS: BP 136/75
== END 2017-12-27 19:20 | disposition home or self-care (01) ==
LOC: ED 16:10
PROVIDERS: Emergency Medicine
DX: R10.9 Unspecified abdominal pain (principal); R33.9 Retention of urine, unspecified; S22.41XD Multiple fractures of ribs, right side, subsequent encounter for fracture with routine healing; S36.113D Laceration of liver, unspecified degree, subsequent encounter; V89.2XXD Person injured in unspecified motor-vehicle accident, traffic, subsequent encounter; F17.210 Nicotine dependence, cigarettes, uncomplicated

== ENCOUNTER 2018-03-04 13:30 | Emergency (ER) | payer MEDICAID ==
[~2018-03-04] VITALS: Ht 160 cm; Wt 50.0 kg
[~2018-03-04 13:30] MED LIST changes: +TORADOL PO
[2018-03-04] MEDS ORDERED: OMNICEF300 M1 PO (15:15)
[2018-03-04 15:25] VITALS: BP 107/56
== END 2018-03-04 15:25 | disposition home or self-care (01) ==
LOC: ED 13:30
DX: J02.0 Streptococcal pharyngitis (principal); R05 Cough

== ENCOUNTER 2018-04-03 13:22 | Inpatient (IN) | payer OTHER ==
[~2018-04-03] VITALS: Ht 160 cm; Wt 46.3 kg
[~2018-04-03 13:22] MED LIST changes: +OMNICEF300 M1 PO
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
--- NOTE | 2018-04-03 13:40 | NUR ---
TO CT SCAN PER MD'S RX. PT C/O DIFFICULTY SWALLOWING AND HAVING DIFFICULTY SPEAKING. WHILE IN CT PT REPORTED ALLERIC TO IODINE-GETS HIVES. DR SHUKLA AND RADIOLOGIST NOTIFIED. PLAN TO PREMEDICATED PRIOR TO CT
[2018-04-03 13:51] LABS: GFR > 60 ML/MIN (>=60 (CALC)); GFR FOR AFR.AMER. > 60 ML/MIN (>=60 (CALC))
[2018-04-03 13:57] LABS: HEMOGLOBIN 12.8 g/dl (12.0-16.0); IMMATURE GRANULOCYTES 0.3 % (0.0-5.0); MEAN CELL VOLUME 85.7 fL CALC (80.0-100.0); MEAN CORPUSCULAR HGB 28.1 pG CALC (26.0-32.0); MEAN CORPUSCULAR HGB CONC 32.8 g/L CALC (32.0-36.0); NEUT# 10.26 thou/uL (2.00-7.15); RED BLOOD COUNT 4.55 mill/uL (4.20-5.60)
[2018-04-03 14:05] LABS: ALBUMIN 4.3 g/dL (3.2-5.0); ALKALINE PHOSPHATASE 88 u/l (38-126); ANION GAP 13 (6-22 (CALC)); BILIRUBIN, TOTAL 0.7 mg/dL (0.0-1.4); BUN 8 mg/dL (7-17); BUN/CREATININE RATIO 10 (12-20 (CALC)); CARBON DIOXIDE 27 mmol/l (22-30); CHLORIDE 106 mmol/l (95-108); CREATININE 0.8 mg/dL (0.5-1.0); GFR > 60 ML/MIN (>=60 (CALC)); GFR FOR AFR.AMER. > 60 ML/MIN (>=60 (CALC)); LIPASE 25 u/l (23-300); SGOT/AST 43 u/l (14-36); SODIUM 142 mmol/l (137-146); TOTAL PROTEIN 7.7 g/dL (6.3-8.2)
[2018-04-03 14:06] LABS: POTASSIUM 3.5 mmol/l (3.5-5.1)
--- NOTE | 2018-04-03 14:50 | NUR ---
OFFICER LUCIANA IS AT BEDSIDE TAKING PICTURES
--- NOTE | 2018-04-03 16:40 | NUR ---
DETECTIVES HERE SPEAKING WITH PATIENT
[2018-04-03] MEDS ORDERED: NAPROSYN500 MG PO (16:42)
--- NOTE | 2018-04-03 17:45 | NUR ---
MOTHER AT BEDSIDE. SAW PT AND TOOK HER CHILDREN HOME WITH HER. SHE SAID PT CAN COME TO BLUE TO HER HOME WHEN SHE IS OUT OF THE HOSPITAL
[2018-04-03 19:09] LABS: URINE BILIRUBIN - DIPSTICK NEGATIVE (NEGATIVE); URINE BLOOD DIPSTICK LARGE (NEGATIVE); URINE COLOR YELLOW; URINE GLUCOSE - DIPSTICK NEGATIVE (NEGATIVE); URINE KETONE >=80 mg/dL (NEGATIVE); URINE LEUK ESTERASE NEGATIVE (NEGATIVE); URINE PROTEIN - DIPSTICK NEGATIVE (NEG-TRACE)
[2018-04-03 19:10] LABS: URINE NITRITE - DIPSTICK POSITIVE (Negative)
[2018-04-03 19:13] LABS: BARBITURATES NEGATIVE (NEGATIVE); COCAINE POSITIVE (NEGATIVE); METHADONE NEGATIVE (NEGATIVE); TETRAHYDROCANNABIONOL NEGATIVE (NEGATIVE); TRICYLIC ANTIDEPRESSANTS NEGATIVE (NEGATIVE)
[2018-04-03 19:14] LABS: OXCYCODONE NEGATIVE (NEGATIVE)
--- NOTE | 2018-04-03 19:15 | NUR ---
PT AGREES TO BE ADMITTED.
[2018-04-03 19:18] LABS: URINE SQUAMOUS EPITHELIAL CELL MANY EPI/hpf (0-FEW)
--- NOTE | 2018-04-03 20:28 | NUR ---
DRANK WATER-TOLERATED WELL. EATING A SANDWICH
--- NOTE | 2018-04-03 20:55 | NUR ---
REPORT TO DAMIÁN AVILA. PT AWAITING ADMISSION
--- NOTE | 2018-04-03 22:52 | NUR ---
RESTING QUIETLY AWAITING ROOM ASSIGNMENT.
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
--- NOTE | 2018-04-03 23:25 | NUR ---
Admission Note Report Given to: DAMIÁN GANT Transported by: Wheelchair X Stretcher Transported with: X Nurse Transporter X Patent IV O2 Child And Youth Program Assistant
[2018-04-04] VITALS (8 sets, daily range): BP systolic 85–104; BP diastolic 50–72
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
--- NOTE | 2018-04-04 01:00 | NUR ---
another sandwich & gatorade given per request.
--- NOTE | 2018-04-04 04:00 | NUR ---
resting quietly. no distress. ivf infusing well.
--- NOTE | 2018-04-04 07:45 | NUR ---
PT RESTING IN BED WITH EYES CLOSED, AROUSES TO VERBAL STIMULI, RESPONDS TO QUESTIONS SLOWLY BUT APPROPRIATELY, AM ASSESMENT COMPLETED, PT HAS MUTIPLE ECCHYMOTIC AREAS NOTED TO FACE, NECK, ALL EXTREMETIES, AND TORSO, LUNGS CLEAR DIMINSHED WITH NO SOB OR DISTRESS NOTED, ABDOMEN SOFT AND BS ACTIVE, DENIES ANY COMPLAINTS, PT QUIET FLAT AFFECT, COMFORT MEASURES PROVIDED, B/P SLIGHTLY HYPOTENSIVE, PT ASYMPTOMATIC, AND B/P HAS TRENDED LOW SINCE ARRIVAL, CALL RODAS WITHIN REACH, WILL CONTINUE TO MONITOR.
--- NOTE | 2018-04-04 09:33 | NUR ---
[employer] FROM [employer] IN TO SEE PATIENT
--- NOTE | 2018-04-04 09:47 | NUR ---
PT GENO SAENZ SHE HAS A HEADAHCE WILL MEDICATE ORDERED.
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
--- NOTE | 2018-04-04 11:00 | NUR ---
IN TO SEE PT, PLAN OF CARE DISCUSSED, CALL RODAS WITHIN REACH,
--- NOTE | 2018-04-04 12:22 | NUR ---
[facility] REPS AT BEDSIDE,PT ALSO HAS VISITORS AT BEDSIDE.
--- NOTE | 2018-04-04 13:10 | NUR ---
EKG PERFORMED BY BRITTON Herbert WITH THIS NURSE AT BEDSIDE FOR ASSIST.
--- NOTE | 2018-04-04 13:18 | NUR ---
[place].Kendell. REP AT BEDSIDE WITH PATIENT
--- NOTE | 2018-04-04 15:30 | NUR ---
PT TALKING ON TELEPHONE, CALL RODAS WITHIN REACH.
--- NOTE | 2018-04-04 15:59 | NUR ---
PT RESTING INBED, TALKING ON TELEPHONE TO FAMILY MEMBER, CALL RODAS WITHIN REACH, WILL CONTINUE TO MONITOR.
--- NOTE | 2018-04-04 17:15 | NUR ---
CONTINENT OF URINE X1
--- NOTE | 2018-04-04 17:33 | NUR ---
PT TO MED SURG WITH NURSE ASSIST FOR SHOWER PER PT REQUEST.
--- NOTE | 2018-04-04 18:15 | NUR ---
PT BACK FROM SHOWER, BACK TO BED AFTER LINEN CHANGE, WARM BLANKET AND COMFORT MEASURES PROVIDED, CALL RODAS WITHIN REACH
--- NOTE | 2018-04-04 19:20 | NUR ---
awake. c/o pain under eyes. medicates as ordered. #20 lac d5ns w 20meq kcl infusing @ 100cchr. po fluids taken well. voids per br. fall precautions cont.
--- NOTE | 2018-04-04 21:30 | NUR ---
zofran 4ng iv given per request for nausea.
--- NOTE | 2018-04-05 04:00 | NUR ---
eyes closed. no apparent distress.
--- NOTE | 2018-04-05 06:00 | NUR ---
amb to br. voided lg amt. donovan well.
--- NOTE | 2018-04-05 06:28 | NUR ---
eyes closed. no distress. ivf infusing well.
--- NOTE | 2018-04-05 07:30 | NUR ---
PT RESTING IN BED WITH EYES CLOSED, AROUSES TO VERBAL STIMULI, RESPONDS TO QUESTIONS SLOWLY BUT APPROPRIATELY, AM ASSESMENT COMPLETED, PT HAS MULTIPLE ECCHYMOTIC AREAS NOTED TO FACE, NECK, ALL EXTREMETIES, AND TORSO, 2 SMALL BURN LIKE LESIONS ON MID/CENTER BACK; NO S/S OF INFECTION NOTED; LUNGS CLEAR DIMINSHED WITH NO SOB OR DISTRESS NOTED, ABDOMEN SOFT AND BS ACTIVE, DENIES ANY COMPLAINTS, PT QUIET FLAT AFFECT, COMFORT MEASURES PROVIDED, B/P SLIGHTLY HYPOTENSIVE, PT ASYMPTOMATIC, AND B/P HAS TRENDED LOW SINCE ADMISSION, PT PLACED ON CONTACT PRECAUTIONS FOR ESBL NOTED THIS AM, PT EDUCATED REGARDING ESBL AND PRINTED INFOR PROVIDED TO PT; CALL RODAS WITHIN REACH, WILL CONTINUE TO MONITOR.
[2018-04-05 08:00] VITALS: BP 100/63
--- NOTE | 2018-04-05 09:15 | NUR ---
PT RESTING WITH EYES CLOSED AROUSES TO VERBAL STIMULI, PT ENCOURGED TO GETTOOB AND AMBUALTE THIS AM, VERBALIZES UNDERSTANDING.
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
--- NOTE | 2018-04-05 11:18 | NUR ---
OFFICERS REMAIN AT BEDSIDE
[2018-04-05 12:00] VITALS: BP 122/68
--- NOTE | 2018-04-05 12:15 | NUR ---
OFFICERS GONE EQUIPMENT CLEANER REPRESENTATIVES AT BEDSIDE SPEAKING WITH PATIENT REAGRDING HER CHILDREN, [facility] REPS ALSO AT BEDSIDE PT AMBULATED TO BATHROOM, WITH SOME DISCOMFORT, TOLERATES ACTIVITY WELL, CONTINENT OF LARGE FORMED BM AND IMMEASUREABLE AMOUNT OF URINE, CONTACT PRECAUTIONS INTACT, BACK TO BEDSIDE AND SITTING UP IN CHAIR AT BEDSIDE
--- NOTE | 2018-04-05 14:00 | NUR ---
PT AMBULATED BACK TO BED, TOLERATED WELL EDUCATED PT REGAREDING INCREASING ACTIVITY AND OOB TIME, VERBALIZES UNDERSTANDING, ENCOURAGED TO REST AND WILL GET UP AGAIN LATER THIS AFTERNOON (DINNER TIME) PT VERBALIZES UNDERSTANDING AND AGREEANCE, SWEET TEA PROVIDED AT PT REQUEST AND MEDICATED FOR COMPLAINTS OF HEADACHE, WILL CONTINUE TO MONITOR.
[2018-04-05 16:00] VITALS: BP 115/70
--- NOTE | 2018-04-05 16:35 | NUR ---
PT RESTING NO S/S OF DISTRESS, CALL RODAS WITHIN REACH, WILL CONTINUE TO MONITOR.
--- NOTE | 2018-04-05 17:42 | NUR ---
PT DOZING DECLINES PM MEAL AT THIS TIME, STATES MAYBE LATER, MEAL TRAY LEFT AT BEDSIDE
--- NOTE | 2018-04-05 19:35 | NUR ---
REPORT TO DAMIÁN GALARZA.
[2018-04-05 20:10] VITALS: BP 111/71
--- NOTE | 2018-04-05 20:10 | NUR ---
PT TRANSFERED TO FLOOR FROM ICU VIA WHEELCHAIR, ACCOMPANIED BY ICU STAFF. ALERT AND ORIENDED. PT AMBULATED FROM WHEELCHAIR TO RECLINER AT BEDSIDE, ONE ASSIST, UNSTEADY GATE. PT ORIENTED TO ROOM AND CALL RODAS SYSTEM. RESPIRATIONS EVEN AND UNLABORED ON RA. LUNGS SOUND CLEAR. IV #20 LAC, INFUSING FLUIDS @ 125 ML/HR, APPEARS HEALTHY. PT HAS A BITE AUREA ON THE LEFT WRIST, THREE BURN GARCIA ON HER BACK, BRUISING UNDER EYES, BRUISING AND SCRATCHES ON THE NECK. PT DENIES ANY NEEDS AT THIS TIME. PT ENCOURAGED TO CALL IF NEEDS SHOULD ARISE. CALL LIGHT WITHIN REACH. WILL CONTINUE TO MONITOR.
--- NOTE | 2018-04-05 20:14 | NUR ---
PT. TAKEN OVER TO MED/SURG AT THIS TIME.
--- NOTE | 2018-04-06 | NUR ---
PT SLEEPING IN BED. RESPIRATIONS EVEN AND UNLABORED. NO SIGNS OR SYMPTOMS OF DISTRESS. WILL CONTINUE TO MONITOR.
--- NOTE | 2018-04-06 04:00 | NUR ---
PT SLEEPING IN BED RESPIRATIONS EVEN AND UNLABORED, ON RA. SAFETY PRECAUTIONS IN PLACE. WILL CONTINUE TO MONITOR.
[2018-04-06 05:36] VITALS: BP 100/60
[2018-04-06 05:37] LABS: IMMATURE GRANULOCYTES 0.3 % (0.0-5.0); MEAN CELL VOLUME 88.4 fL CALC (80.0-100.0); MEAN CORPUSCULAR HGB CONC 32.8 g/L CALC (32.0-36.0); NEUT# 5.97 thou/uL (2.00-7.15); RED BLOOD COUNT 3.72 mill/uL (4.20-5.60); RED CELL DISTRI WIDTH 14.7 % (11.5-15.5)
[2018-04-06 05:45] LABS: HEMATOCRIT 32.9 % (37.0-47.0); HEMOGLOBIN 10.8 g/dl (12.0-16.0)
[2018-04-06 05:48] LABS: ALKALINE PHOSPHATASE 61 u/l (38-126); AMYLASE < 30 u/l (30-110); BILIRUBIN, TOTAL 0.6 mg/dL (0.0-1.4); BUN 5 mg/dL (7-17); BUN/CREATININE RATIO 7 (12-20 (CALC)); CARBON DIOXIDE 26 mmol/l (22-30); CHLORIDE 104 mmol/l (95-108); CREATININE 0.7 mg/dL (0.5-1.0); GFR > 60 ML/MIN (>=60 (CALC)); GFR FOR AFR.AMER. > 60 ML/MIN (>=60 (CALC)); LIPASE 31 u/l (23-300); MAGNESIUM 1.4 mg/dL (1.6-2.3); SGOT/AST 27 u/l (14-36); SODIUM 136 mmol/l (137-146)
[2018-04-06 05:52] LABS: ANION GAP 10 (6-22 (CALC)); POTASSIUM 4.3 mmol/l (3.5-5.1)
[2018-04-06 05:53] LABS: ALBUMIN 2.6 g/dL (3.2-5.0); TOTAL PROTEIN 5.1 g/dL (6.3-8.2)
--- NOTE | 2018-04-06 07:43 | NUR ---
SHIFT REPORT, PT SLEEPING IN RIGHT SIDE-LYING POSITION, SEEM COMFORTABLE AT THIS TIME WITH EVEN NON-LABORED BREATHING, IVF INFUSING, CALL RODAS IN REACH.
--- NOTE | 2018-04-06 08:06 | NUR ---
PT AWAKE AT THIS TIME, C/O PAIN TO FACE AND JOSIANE-AREA @ 9/10, ASSISTED WITH MAX ASSISTED TO BR, GAIT UNSTEADY WITH LIMP, ASSISTED BACK TO BED, WILL CONTINUE TO MONITOR.
[2018-04-06 08:34] VITALS: BP 108/66
--- NOTE | 2018-04-06 12:43 | NUR ---
REP FROM [facility] VISITED, DR HOLDEN ROUNDED ORDERED PT. MANY FRIENDS VISITING AT DIFFERENT TIMES TO GIVE SUPPORT. PT SEEM DEPRESSED BUT VIVITS SEEM TERAPEUTIC, WILL CONTINUE TO MONITOR.
--- NOTE | 2018-04-06 16:10 | NUR ---
RESTING IN BED AT THIS TIME AFTER EVAL AND TREATMENT WITH PHYSICAL THERAPY, C/O PAIN @ 910 TO FACE AND JOSIANE AREA, CONCERN ADDRESSED, CALL RODAS IN REACH.
[2018-04-06 16:14] VITALS: BP 104/62
--- NOTE | 2018-04-06 19:00 | NUR ---
REPORT RECEIVED FROM DAMIÁN YANG. PT RESTING IN RECLINER AT BEDSIDE, ALERT AND ORIENTED. IV # 22 RIGHT WRIST, INFUSING FLUIDS @125 ML/HR. RESPIRATIONS EVEN AND UNLABORED, ON RA. LUNGS SOUND CLEAR. PT HAS BRUISING UNDER THE EYES, BITE AUREA ON LEFT WRIST, SCRAPES AND SCRATCHES THROUGH OUT BODY, AND THREE WILKINS ON HER BACK. PT ASSISTED TO THE RESTROOM PER REQUEST, GATE UNSTEADY WITH WALKER. PT INFORMED TO CALL FOR ASSISTANCE WHEN FINISHED. SAFETY PRECAUTIONS IN PLACE. WILL CONTINUE TO MONNITOR.
[2018-04-06 19:25] VITALS: BP 96/57
--- NOTE | 2018-04-07 | NUR ---
PT RESTING IN BED. RESPIRATIONS EVEN AND UNLABORED, ON RA. SAFETY PRECAUTIONS IN PLACE. WILL CONTINUE TO MONITOR.
--- NOTE | 2018-04-07 04:00 | NUR ---
PT ASSISTED TO THE RESTROOM PER REQUEST. PT COMPLAINING OF IV PAIN ASKING FOR A NEW IV. NEW IV STARTED BE OLEKSANDR VERA, #22 LFA APPEARS HEALTHY AND PATENT.
[2018-04-07 04:53] VITALS: BP 101/57
[2018-04-07 07:50] VITALS: BP 101/70
--- NOTE | 2018-04-07 08:17 | NUR ---
SHIFT CHANGE REPORT, PT SLEEPING SOUNDLY BUT AWAKENED SLIGHTLY TO VERBAL STIMULI, NO C/O DISCOMFORT AT THIS TIME,VS MEASURED AND RECORDED, CALL RODAS IN REACH.
--- NOTE | 2018-04-07 11:47 | NUR ---
BEING ASSISTED TO AND FROM BR BY FRIEND, PAIN CONCERN ADDRESSED AT THIS TIME, WILL CONTINUE TO MONITOR.
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
[2018-04-07 15:40] VITALS: BP 97/48
--- NOTE | 2018-04-07 16:19 | NUR ---
SECOND ATTEMPT TO SEE PATIENT FOR MOBILITY AND AMB THIS AFTERNOON. EARLIER SHE HAD BEEN VOMITING AND JUST GOTTEN TO SLEEP. SHE IS CURRENTLY ASLEEP AND NOT EASILY AROUSED. WHEN WOKEN, SHE STATES SHE HAS BEEN UP ALOT ALREADY TODAY AND IS SO SLEEPY. SHE REQUESTS NO THERAPY TODAY. SHE UNDERSTANDS THE NEED TO STAY MOBILE TO HELP DECREASE HER PAIN AND EFFECTS OF PRONLONGED BED REST. SHE STATES THAT SHE WILL BE SURE AND GET UP OVER THE WEEKEND AND WILL BE MORE RESTED TO PARTICIPATE IN THERAPY ON TUESDAY. NSG INFORMED.
--- NOTE | 2018-04-07 16:22 | NUR ---
PT WENT TO X-RAY VIA WHEELCHAIR BY [facility]. PT DENIES NEEDS AT THIS TIME.
--- NOTE | 2018-04-07 18:28 | NUR ---
PT SIGNED CONSENT TO HAVE PHOTOS TAKEN IN ICU TO BE GIVEN TO [place] [employer]; OFFICER MATTHEW JAVED #115 GIVEN PICTURES AT THIS TIME
--- NOTE | 2018-04-07 19:10 | NUR ---
PT IN LOW FOWLERS POSITION W/LIGHTS OFF AND TV ON, APPEARS TO BE SEEPING, DID NOT AWAKE TO OUR VOICES. REPORT RECEIVED FROM DAY NURSE. NO S/O DISTRESS NOTED AT THIS TIME. CALL LIGHT AT BEDSIDE.
[2018-04-07 19:35] VITALS: BP 96/60
--- NOTE | 2018-04-08 02:08 | NUR ---
PT IV FLUIDS REPLENISHED AT THIS TIME. NO S/O DISTRESS, PT SLEEPING. CALL LIGHT AT SIDE.
[2018-04-08 04:45] VITALS: BP 94/56
--- NOTE | 2018-04-08 05:44 | NUR ---
PT MEDICATED FOR PAIN AND AM MEDICATIONS ORDERED, PT ASSISTED TO BSC AND BACK TO BED. PT IS VERY WEAK AMBULATING, VERY SORE GENERALIZED AND C/O OF PAIN IN HER NOSE.
[2018-04-08 08:00] VITALS: BP 92/49
--- NOTE | 2018-04-08 08:00 | NUR ---
PT WAS SHOWERING FOR EXTENSIVE PERIOD OF TIME THIS MORNING, LATER SEEN AWAKE AND ALERT. PT MOVES SLOWLY IN BED, STATES MUSCULAR PAIN FROM BATTERY INFLICTED ON HER. PT ENCOURAGED TO ATTEMPT TO EAT MORE, STATED THAT HER APPETITE IS MINIMAL AFTER EVENT.
--- NOTE | 2018-04-08 12:00 | NUR ---
PT SEEN RESTING IN THE BED, EYES CLOSED.
[2018-04-08 16:01] VITALS: BP 95/48
--- NOTE | 2018-04-08 17:44 | NUR ---
PT ASSISTED BY FEMALES TO BR NEEDED TODAY. SHE IS SEEN RESTING IN BED WITH EYES CLOSED MUCH OF THE TIME.
[2018-04-08 20:00] VITALS: BP 101/51
--- NOTE | 2018-04-08 20:15 | NUR ---
PT ASSISTED TO RESTROOM AND BACK TO BED. PT C/O PAIN IN RIBS UPON AMBULATING. ABD SOFT/TENDER TO PALPATING,ACTIVE BOWEL SOUNDS, LUNG SOUNDS CLEAR, LOCX3, NO NOTED EDEMA/TRACE TO OUTER LEFT ANKLE, BRUISE TO DISTAL LEFT THIGH. WILL
--- NOTE | 2018-04-08 21:09 | NUR ---
PT MEDICATED ORDERS PROVIDE AND FOR PAIN 9/10 ON PAIN SCALE. PT IS UPRIGHT IN BED WATCHING TV. ANTIBIOTIC THERAPY ADMINISTERED AT THIS TIME. IVF RUNNING ORDERS PROVIDE. PT ASSESSED, REPORTS BEING STILL VERY SORE IN RIB AREA AND FACE/NOSE/THROAT. DRINKS PROVIDED AND SNACK REQUESTED. DENIES ANY OTHER NEEDS, ENCOURAGED TO CALL.
--- NOTE | 2018-04-09 02:00 | NUR ---
PT APPEARS TO BE SLEEPING AT THIS TIME. NO S/O DISTRESS NOTED. CALL LIGHT AT SIDE.
[2018-04-09 03:49] VITALS: BP 94/40
--- NOTE | 2018-04-09 06:13 | NUR ---
PT MEDICATED ORDERS PROVIDE W/ANTIBIOTIC THERAPY. PT WAS SLEEING SOUNDLY UPOON MY ENTERING ROOM. NO S/O DISTRESS NOTED.
--- NOTE | 2018-04-09 07:30 | NUR ---
REPORT RECEIVED FROM DAMIÁN CABRALES. PT SLEEPING AT THIS TIME. CALL LIGHT WITHIN REACH.
[2018-04-09 09:25] VITALS: BP 98/46
--- NOTE | 2018-04-09 10:00 | NUR ---
PT UP IN THE SHOWER AT THIS TIME.
--- NOTE | 2018-04-09 11:00 | NUR ---
VISITOR AT BEDSIDE.
--- NOTE | 2018-04-09 13:04 | NUR ---
DR. HOLDEN AND CAMI TIRADO IN TO SEE PT AT THIS TIME.
--- NOTE | 2018-04-09 16:26 | NUR ---
PT AMBULATED TO RESTROOM W/ STANDBY ASSIST. REPORTS MILD DIZZINESS. STAFF CLOSE BY FOR SAFETY. ASSISTED BACK TO BED WITHOUT INCIDENT.
[2018-04-09 16:55] VITALS: BP 106/54
--- NOTE | 2018-04-09 18:50 | NUR ---
PT IS IN HIGH FOWLERS POSITION WATCHING TV W/LIGHTS OUT. IV PUMP WAS SOUNDING. PT REQUESTED THAT PHONE BE CHARGED/PROVIDED. DENIES ANY OTHER NEEDS, BUT REPORTS THAT SHE IS "DOING BETTER TODAY."
[2018-04-09 19:10] VITALS: BP 102/61
--- NOTE | 2018-04-09 19:37 | NUR ---
PT PUMP SOUNDED. VISITOR AT BEDSIDE. PT APPEARS VERY WEAK/TALKING SOFTLY, ASKING FOR HELP MOVING HER BST OVER A LITTLE/ASSISTANCE PROVIDED. WILL FOLLOW-UP REPLACING FLUIDS. NO S/O DISTRESS.
--- NOTE | 2018-04-09 21:04 | NUR ---
PT CALLED TO REQUEST THAT HER FRIEND TAKE HER OUTSIDE. I EXPLAINED TO HER THAT WE WERE UNABLE TO ACCOMPANY HER OUTSIDE, BUT THAT WE COULD ASSIST HER IN AMBULATING HALLWAY OR WE COULD ACCOMPANY HER IN WC IN HALLWAY OR TO SIT AND LOOK OUT THE WINDOW AT END OF HALLWAY. PT REFUSED OFFER TO AMBULATE. PT ASSESSED AT THIS TIME. LUNG SOUNDS ARE CLEAR, ABD SOFT TENDER TO PALPATION. NO NOTED EDEMA AT THIS TIME. PT REPORTS THAT RIGHT RIB AREA IS BENDING SHED WORKER TO TOUCH AND UPON MOVEMENT. REPORTS VERY SMALL LOOSE STOOL TODAY. JUICE AND SNACK PROVIDED. VISITOR AT BEDSIDE. CALL LIGHT AT SIDE AND PT ENCOURAGED TO CALL NEEDS ARISE.
--- NOTE | 2018-04-09 21:04 | NUR ---
PT MEDICATED FOR NAUSEA. SHE REPORTS THAT THE ANTIBIOTIC "LARGE PILLS MAKE ME NAUSEOUS." VISITOR IS AT BEDSIDE. PT IS UPRIGHT IN BED TALKING W/VISITOR. NO S/O DISTRESS NOTED. PT REQUESTING MORE DRINK AND SNACK/PROVIDED.
[2018-04-10 04:05] VITALS: BP 102/60; BP 102/69
--- NOTE | 2018-04-10 04:36 | NUR ---
PT V/S ASSESSED, PT WAS SLEEPING VERY SOUNDLY UPON ENTERING ROOM, PT APPEARS GROGGY, BUT RESPONDED TO MY VOICE AND ASSESSMENT. PT AWOKE AND ASSISTED W/PO FLUIDS AND ENDED UP TALKING OF PLANS AFTER DISCHARGE, HER KIDS AND HER CIRCUMSTANCES. PT LEFT RETURNING TO SLEEP, LIGHTS DOWN LOW.
[2018-04-10 05:45] VITALS: BP 98/70
--- NOTE | 2018-04-10 05:49 | NUR ---
PT EXTREMELY GROGGY ACTING, VERY DIFFICULT TO GET TO SIT UP TO TAKE MEDICATIONS. SHE ANSWERS VERY SOFTLY, BP REASSESSED, MEDICATED ORDERS PROVIDE, ASSISTED TO BSC, BUT PT EXTREMELY WEAK ACTING, ASKED FOR BSC SO SHE DOESN'T HAVE TO WALK. PT ASSISTED AND BACK TO BED. 650CC OF CLEAR YELLOW URINE. IV ANTIBIOTICS ARE RUNNING AT THIS TIME. CALL LIGHT AT SIDE.
--- NOTE | 2018-04-10 08:05 | NUR ---
SHIFT CHANGE REPORT, PT SLEEPING SOUNDLY, BREATHING EVEN AND NON-LABORED, NO SIGN DISCOMFORT AT THIS TIME, IVF INFUSING, CALL RODAS IN REACH.
[2018-04-10 09:20] VITALS: BP 96/56
--- NOTE | 2018-04-10 10:11 | NUR ---
AWAKE ALERT AND ORIENTED, REPORTS HAVING PAIN TO LEFT ANKLE, REFUSED TO AMBULATE WITH WALKER STATING SHE FEELS MUCH BETTER. HAS NOT HAD BM FOR PAST 4 DAYS BUT REFUSED MOM AND PRUNE JUICE STATING SHE IS EATING MORE NOW KNOWS SHE WILL HAVE BM SOON SHE IS PASSING MUCH GAS. WILL CONTINUE TO MONITOR.
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
--- NOTE | 2018-04-10 11:45 | NUR ---
SLEEPING BUT AWAKEN TO VERBAL STIMULI, NO NEW COMPLAINS AT THIS TIME, ALL NEEDS ADDRESSED.
--- NOTE | 2018-04-10 12:02 | NUR ---
SLEEPING BUT AWAKEN TO VERBAL STIMULI, DR ADINA CALVIN, PT STATED SHE IS TIRED AND DID NOT GET MUCH SLEEP AT HS DUE TO BACK PAIN. MD'S PLAN TO D/C IVF, OBTAIN URINE CX AND D/C HOME TOMORROW, PT ENCOURAGED TO BE MORE AMBULATORY AND TO STAY OOB MORE.
[2018-04-10 13:40] LABS: URINE BILIRUBIN - DIPSTICK NEGATIVE (NEGATIVE); URINE BLOOD DIPSTICK NEGATIVE (NEGATIVE); URINE COLOR YELLOW; URINE GLUCOSE - DIPSTICK NEGATIVE (NEGATIVE); URINE KETONE NEGATIVE (NEGATIVE); URINE LEUK ESTERASE NEGATIVE (Negative); URINE NITRITE - DIPSTICK NEGATIVE (Negative); URINE PH 7.5 (4.5-8.0); URINE PROTEIN - DIPSTICK NEGATIVE (NEG-TRACE); URINE SPECIFIC GRAVITY 1.015; URINE UROBILINOGEN - DIPSTICK 0.2 E.U./dL (0.2)
[2018-04-10 13:41] LABS: URINE CLARITY CLEAR
[2018-04-10 15:50] VITALS: BP 95/56
--- NOTE | 2018-04-10 16:00 | NUR ---
RESTING IN BED, ALL NEEDS ADDRESSED.
[2018-04-10 19:15] VITALS: BP 91/50
--- NOTE | 2018-04-10 19:40 | NUR ---
PT. SITTING UP IN BED WITH NO RESP DISTRESS NOTED. ASSESSMENT COMPLETED; IV SITE PATENT AND SL; PT. C/O FACIAL AND LEFT ANKLE PAIN 11/14; MEDICATED WITH ORDERED TRAMADOL; WILL REASSESS; PO FLUIDS OFFERED AND SNACK PROVIDED; ENCOURAGED TO CALL FOR ANY NEEDS; CALL LIGHT IS IN REACH; WILL CONTINUE TO MONITOR.
--- NOTE | 2018-04-10 21:24 | NUR ---
PT. VOMITING; MEDICATED WITH ORDERED ZOFRAN; WILL REASSESS; [facility] IRASEMA AND CRACKERS PROVIDED; CALL LIGHT IS IN REACH; WILL CONTINUE TO MONITOR.
--- NOTE | 2018-04-10 23:30 | NUR ---
PT. SITTING UP IN BED WATCHING TV; NO DISTRESS NOTED;DENIES NEEDS; CALL LIGHT IS IN REACH.
--- NOTE | 2018-04-11 01:43 | NUR ---
PT. RESTING IN BED ON STOMACH WITH EYES CLOSED; NO DISTRESS NOTED; RESP EVEN AND UNLABORED; CALL LIGHT IS IN REACH.
[2018-04-11 03:49] VITALS: BP 102/68
--- NOTE | 2018-04-11 03:49 | NUR ---
CNAS IN AT BEDSIDE OBTAINING VS; NO DISTRESS NOTED; CALL LIGHT IS IN REACH.
[2018-04-11 05:43] LABS: IMMATURE GRANULOCYTES 0.4 % (0.0-5.0); MEAN CELL VOLUME 87.2 fL CALC (80.0-100.0); MEAN CORPUSCULAR HGB 28.2 pG CALC (26.0-32.0); MEAN CORPUSCULAR HGB CONC 32.4 g/L CALC (32.0-36.0); NEUT# 5.96 thou/uL (2.00-7.15); RED BLOOD COUNT 4.85 mill/uL (4.20-5.60); RED CELL DISTRI WIDTH 14.3 % (11.5-15.5)
[2018-04-11 05:46] LABS: HEMATOCRIT 42.3 % (37.0-47.0); HEMOGLOBIN 13.7 g/dl (12.0-16.0)
[2018-04-11 05:56] LABS: ALBUMIN 4.4 g/dL (3.2-5.0); ALKALINE PHOSPHATASE 89 u/l (38-126); ANION GAP 15 (6-22 (CALC)); BILIRUBIN, TOTAL 0.6 mg/dL (0.0-1.4); BUN 12 mg/dL (7-17); BUN/CREATININE RATIO 16 (12-20 (CALC)); CARBON DIOXIDE 30 mmol/l (22-30); CHLORIDE 96 mmol/l (95-108); CREATININE 0.7 mg/dL (0.5-1.0); GFR > 60 ML/MIN (>=60 (CALC)); GFR FOR AFR.AMER. > 60 ML/MIN (>=60 (CALC)); MAGNESIUM 2.1 mg/dL (1.6-2.3); POTASSIUM 4.4 mmol/l (3.5-5.1); SGOT/AST 23 u/l (14-36); SODIUM 136 mmol/l (137-146); TOTAL PROTEIN 7.6 g/dL (6.3-8.2)
--- NOTE | 2018-04-11 06:15 | NUR ---
PT. C/O FACIAL PAIN 10/14 AND SLIGHT PAIN TO LEFT ANKLE; MEDICATED WITH ORDERED TRAMADOL; WILL REASSESS; DENIES FURTHER NEEDS; CALL LIGHT IS IN REACH.
--- NOTE | 2018-04-11 07:00 | NUR ---
SHIFT CHANGE REPORT, PT SLEEPING SOUNDLY BUT AWAKEN TO VERBAL STIMULI, STILL C/O FACE PAIN, DOES NOT EAT BREAKFAST STATING SHE IS NOT A BREAKFAST PERSON, TOOK MED AND WENT BACK TO SLEEP, ENCOURAGED TO GET OOB AND AMBULATE, WILL CONTINUE TO MONITOR.
[2018-04-11 08:32] VITALS: BP 86/46
--- NOTE | 2018-04-11 13:34 | NUR ---
SITTING UP IN BED HAVING MEAL AND EATING HEARTILY, DR HOLDEN ROUNDED AND INFORMED PT OF D/C PLAN FOR TODAY, SHE IS VERY HAPPY WITH A PLEASANT SMILE AND EXPRESSES APPRECIATION, SHE IS READY TO GO, WILL CONTINUE TO MONITOR.
--- NOTE | 2018-04-11 14:21 | NUR ---
COMPLAIN OF NAUSEA, MEDICATED WITH ZOFRAN; NO S/S OF DISTRESS NOTED
--- NOTE | 2018-04-11 17:32 | NUR ---
WANTED TO LEAVE BY 0 FOR APPOINTMENT WITH [facility] DEPARTMENT BUT WAS INFORMED D/C ORDERS HAD NOT BEEN WRITTEN YET, WAS INFORMED AND HASTENED PROCESS BUT CARE TEAM CAME SHORTLY AFTER AND HELD CONFERENCE WITH PT, SHE IS LEAVING AT THIS TIME WITH FRIEND.
--- NOTE | 2018-04-11 17:37 | NUR ---
Discharge instructions given. Patient verbalizes understanding of same. Discharged in stable condition via Wheelchair to Home with friend. All belongings sent with pt.
== END 2018-04-11 17:40 | disposition home or self-care (01) | DRG 923 ==
LOC: ED 13:22 → ED-I 18:39 → ED 18:57 → ICU 18:58 → ED-I 18:58 → MS2 19:45 → ICU 21:11 → MS2 04-05 20:00
PROVIDERS: Family Medicine; ADMIT Internal Medicine; ATTEND Internal Medicine Nephrology
DX: T74.21XA Adult sexual abuse, confirmed, initial encounter (principal); N39.0 Urinary tract infection, site not specified; S80.12XA Contusion of left lower leg, initial encounter; S80.11XA Contusion of right lower leg, initial encounter; S40.022A Contusion of left upper arm, initial encounter; S40.021A Contusion of right upper arm, initial encounter; S10.93XA Contusion of unspecified part of neck, initial encounter; S00.12XA Contusion of left eyelid and periocular area, initial encounter; S00.11XA Contusion of right eyelid and periocular area, initial encounter; S00.83XA Contusion of other part of head, initial encounter; E86.0 Dehydration; B96.1 Klebsiella pneumoniae [K. pneumoniae] as the cause of diseases classified elsewhere; Y07.03 Male partner, perpetrator of maltreatment and neglect; Z16.12 Extended spectrum beta lactamase (ESBL) resistance